=== PATIENT | male | born 1960 | race Caucasian/White ===

== ENCOUNTER 2017-04-19 22:45 | Emergency (ER) | payer OTHER ==
--- NOTE | 2017-04-20 00:27 | EDPHY ---
H & P Stated Complaint: abd x3 days hx of diverticulitis, ate almonds Time Seen by Provider: 04/20/17 00:07 HPI/ROS: Chief Complaint: Abdominal pain HPI: A 57-year-old male with a history of diverticulitis in the past has been having left lower quadrant abdominal pain for the last 3 days. Patient states that he 1st noticed a little bit of pain on Wednesday. He played golf on Wednesday and noticed a little bit of worsening symptoms in the afternoon but then they went away again. Patient did not have any symptoms on Wednesday. On Wednesday started having some worsening left lower quadrant pain consistent with his prior diverticulitis. No fevers or chills. No nausea or vomiting. No diarrhea. ROS: 10 point Review of Systems is negative except as noted in the HPI. PMH: Diverticulitis Social History: No smoking, occasional alcohol, no recreational drug use Family History: non-contributory Physical Exam: Gen: Awake, Alert, No Distress HEENT: Nose: no rhinorrhea Eyes: PERRLA, EOMI Mouth: Moist mucosa Neck: Supple, no JVD Chest: nontender, lungs clear to auscultation Heart: S1, S2 normal, no murmur Abd: Soft, moderate left lower quadrant tenderness, no right lower quadrant tenderness or upper abdominal tenderness, no guarding, no peritoneal signs Back: no CVA tenderness, no midline tenderness Ext: no edema, non-tender Skin: no rash Neuro: CN II-XII intact, Sensation grossly intact, Strength 5/5 in bilateral upper and lower extremities - Personal History Current Tetanus Diphtheria and Acellular Pertussis (TDAP): Unsure - Medical/Surgical History Hx Asthma: No Hx Chronic Respiratory Disease: No Hx Diabetes: No Hx Cardiac Disease: No Hx Renal Disease: No Hx Cirrhosis: No Hx Alcoholism: No Hx HIV/AIDS: No Hx Splenectomy or Spleen Trauma: No Other PMH: diverticulitis, idiopathic pancreatitis, appendectomy - Social History Smoking Status: Never smoked Constitutional: Initial Vital Signs Temperature (C) 37 C 04/19/17 22:53 Heart Rate 65 04/19/17 22:53 Respiratory Rate 18 04/19/17 22:53 Blood Pressure 144/84 H 04/19/17 22:53 O2 Sat (%) 98 04/19/17 22:53 O2 Delivery Mode Room Air Allergies/Adverse Reactions: No Known Allergies Allergy (Unverified 04/19/17 22:53) Home Medications: Medication Instructions Recorded Amoxicillin/Clavulanate Pot 875 mg PO BID #20 tab 04/20/17 [Augmentin 875 MG TAB (*)] Medical Decision Making ED Course/Re-evaluation: 57-year-old male with moderate left lower quadrant tenderness with no peritoneal signs, no leukocytosis, no fever. Symptoms are consistent with early uncomplicated diverticulitis. I have explained to the patient that I cannot rule out abscess or perforation at this time however given his exam findings, lack of fever and normal white count I think it is unlikely. He is in agreement does not want CT scanning at this time. He will continue taking oral Augmentin as an outpatient will follow up with his primary care physician for early re-evaluation. Should his symptoms worsen he will return for further evaluation including CT scanning and possible IV antibiotics. - Data Points Laboratory Results: Laboratory Results 04/19/17 23:33 04/19/17 23:33 04/19/17 04/19/17 23:33 23:33 WBC 8.19 10^3/uL 10^3/uL (3.80-9.50) RBC 4.10 10^6/uL L 10^6/uL (4.40-6.38) Hgb 13.9 g/dL g/dL (13.7-17.5) Hct 37.8 % L % (40.0-51.0) MCV 92.2 fL fL (81.5-99.8) MCH 33.9 pg pg (27.9-34.1) MCHC 36.8 g/dL H g/dL (32.4-36.7) RDW 12.6 % % (11.5-15.2) Plt Count 187 10^3/uL 10^3/uL (150-400) MPV 10.3 fL fL (8.7-11.7) Neut % (Auto) 70.0 % % (39.3-74.2) Lymph % (Auto) 18.6 % % (15.0-45.0) [place] % (Auto) 7.1 % % (4.5-13.0) Eos % (Auto) 3.2 % % (0.6-7.6) Baso % (Auto) 0.7 % % (0.3-1.7) Nucleat RBC Rel Count 0.0 % % (0.0-0.2) Absolute Neuts (auto) 5.74 10^3/uL 10^3/uL (1.70-6.50) Absolute Lymphs (auto) 1.52 10^3/uL 10^3/uL (1.00-3.00) Absolute Monos (auto) 0.58 10^3/uL 10^3/uL (0.30-0.80) Absolute Eos (auto) 0.26 10^3/uL 10^3/uL (0.03-0.40) Absolute Basos (auto) 0.06 10^3/uL 10^3/uL (0.02-0.10) Absolute Nucleated RBC 0.00 10^3/uL 10^3/uL (0-0.01) Immature Gran % 0.4 % % (0.0-1.1) Immature Gran # 0.03 10^3/uL 10^3/uL (0.00-0.10) Sodium 141 mEq/L mEq/L (134-144) Potassium 3.9 mEq/L mEq/L (3.5-5.2) Chloride 105 mEq/L mEq/L (97-110) Carbon Dioxide 27 mEq/l mEq/l (22-31) Anion Gap 9 mEq/L mEq/L (8-16) BUN 18 mg/dL mg/dL (7-23) Creatinine 1.2 mg/dL mg/dL (0.7-1.3) Estimated GFR > 60 Glucose 116 mg/dL H mg/dL (70-100) Calcium 9.2 mg/dL mg/dL (8.5-10.4) Medications Given: Discontinued Medications Amoxicillin/Clavulanate Potassium (Augmentin 875mg) 875 mg PO EDNOW ONE PRN Reason: Protocol Stop: 04/20/17 01:23 Last Admin: 04/20/17 01:34 Dose: 875 mg Departure - Departure Disposition: Home, Routine, Self-Care Clinical Impression: Diverticulitis Condition: Good Instructions: Diverticulitis (ED), Diverticulitis Diet (ED) Additional Instructions: Follow up with your primary care physician in 2-3 days for re-evaluation. Return to the emergency department for increasing pain, fevers, chills, nausea, vomiting, or any other concerns. Make sure to take your full course of antibiotics. Referrals: [facility] [Other] - As per Instructions Prescriptions: Amoxicillin/Clavulanate Pot [Augmentin 875 MG TAB (*)] 875 mg PO BID #20 tab
[2017-04-20 00:42] LABS: ANION GAP 9 mEq/L (8-16); CALCIUM 9.2 mg/dL (8.5-10.4); CARBON DIOXIDE 27 mEq/l (22-31); CHLORIDE 105 mEq/L (97-110); CREATININE 1.2 mg/dL (0.7-1.3); GLOMERULAR FILTRATION RATE > 60; GLUCOSE 116 mg/dL (70-100); POTASSIUM 3.9 mEq/L (3.5-5.2); SODIUM 141 mEq/L (134-144)
[2017-04-20 00:58] LABS: % IMMATURE GRANULYOCYTES 0.4 % (0.0-1.1); ABSOLUTE IMMATURE GRANULOCYTES 0.03 10^3/uL (0.00-0.10); ADD DIFF? NO; ADD MORPH? NO; ADD SCAN? NO; ATYPICAL LYMPHOCYTE FLAG 0 (0-99); FRAGMENT RBC FLAG 0 (0-99); HEMATOCRIT 37.8 % (40.0-51.0); HEMOGLOBIN 13.9 g/dL (13.7-17.5); LEFT SHIFT FLG 0 (0-99); LIPEMIA HEMOLYSIS FLAG 90 (0-99); MEAN CELL HEMOGLOBIN 33.9 pg (27.9-34.1); MEAN CELL HEMOGLOBIN CONCENTR. 36.8 g/dL (32.4-36.7); MEAN CELL VOLUME 92.2 fL (81.5-99.8); MEAN PLATELET VOLUME 10.3 fL (8.7-11.7); PLATELET CLUMPS FLAG 10 (0-99); PLATELET COUNT 187 10^3/uL (150-400); RED CELL DISTRIBUTION WIDTH 12.6 % (11.5-15.2)
[2017-04-20] MEDS ORDERED: AMOXICILLIN/CLAVULANATE POT 875/125 MG TAB PO ONE (01:22)
[2017-04-20 01:39] VITALS: BP 131/77; PULSE 63; RESP 20; TEMP 98.2; O2SAT 95
== END 2017-04-20 01:39 | disposition home or self-care (01) ==
DX: K57.92 Diverticulitis of intestine, part unspecified, without perforation or abscess without bleeding (principal); Z90.89 Acquired absence of other organs